=== PATIENT | female | born 1940 | race Caucasian/White ===

== ENCOUNTER 2018-09-02 13:52 | Emergency (ER) | payer MEDICARE ==
[~2018-09-02] VITALS: Ht 170.2 cm; Wt 78.0 kg
[~2018-09-02 13:52] MED LIST: ALPR0.5T6 PO; ASPI-630 PO; BACI1CAP PO; CALC-32 PO; DICY10CA53 PO; DILT120C71 PO; DOCU-109 PO; GABA800T2 PO; HEPA500022 SQ; HYDR-2680 PO; L. A1CAP10 PO; L. A1CAP7 PO; LEVO100T5 PO; LIDO700A39 TD; LINE600T PO; LOSA50TA7 PO; MULT-658 PO; MV-M1TAB7 PO; NITR100C PO; OMEP20CA9 PO; OXYC-327 PO; OXYC1TAB8 PO; PIPE2.255 MC
[2018-09-02 14:44] VITALS: BP 146/86
[2018-09-02] MEDS ORDERED: HYDROcodone/APAP 5/325MG 1 TAB TABLET PO ONE (15:00)
--- NOTE | 2018-09-02 15:03 | PHYS DOC ---
Past Medical History Past Medical History: Anxiety, Diabetes-Type II, Fibromyalgia, GERD, Hypertension, Hypothyroid, P.U.D., Other Additional Past Medical Histor: lupus,gastric ulcers,spinal stenosis,NEUROPTHY, OA Past Surgical History: Other Additional Past Surgical Histo: spinal x5 Alcohol Use: None Drug Use: Marijuana Adult General Chief Complaint Chief Complaint: MECHANICAL FALL HPI HPI 77-year-old female presents to ER via POV with her son for complaints of mechanical fall last night at 1 AM. Patient reports she has ongoing issues where her right leg "gives out on me". Patient reports she was using her walker and was going to the bathroom when her right leg did so and caused her to fall into the wall and then onto the floor. Patient reports she struck the right side of her head denies any LOC, dizziness, or vision changes. Patient's son at bedside denies patient with any confusion. Patient reports she does have right- sided head pain. Patient denies any nausea or vomiting. Patient reports she also struck her right elbow and hip. Patient reports she has been able to ambulate with use of walker today after fall but does have increased pain. Pt's son reports pt has been out of her Rx'd pain medication as someone had taken them from the [facility]. Review of Systems Review of Systems Constitutional: Denies lethargy Eyes: Denies change in visual acuity, redness, or eye pain [] HENT: Denies nasal congestion or sore throat [] Respiratory: Denies cough or shortness of breath [] Cardiovascular: Denies CP/palpitations GI: Denies abdominal pain, nausea, vomiting, bloody stools or diarrhea [] : Denies dysuria or hematuria. Denies incontinence of bowel/bladder Musculoskeletal: Reports rt lower back pain, rt elbow and rt hip pain. Integument: Denies open wounds/abrasions Neurologic: Denies headache, focal weakness or sensory changes. Denies dizziness All other systems were reviewed and found to be within normal limits, except as documented in this note. Current Medications Current Medications Current Medications Medications (Trade) Dose Ordered Sig/Karlene Start Time Stop Time Status Last Admin Dose Admin Acetaminophen/ Hydrocodone Bitart (Lortab 5/325) 1 tab 1X ONCE 09/02/18 15:00 09/02/18 15:01 DC 09/02/18 15:00 1 TAB Allergies Allergies Allergies Coded Allergies Type Severity Reaction Last Updated Verified etodolac Allergy Mild SWELLING 01/12/14 Yes latex Allergy Mild SKIN IRRITATION 01/12/14 Yes metformin Allergy Unknown 01/11/18 Yes sitagliptin Allergy Unknown 01/11/18 Yes Sulfa (Sulfonamide Antibiotics) Adverse Reaction Severe Rash 01/11/18 Yes codeine Adverse Reaction Mild Upset stomach 01/12/14 Yes Physical Exam Physical Exam Constitutional: Well developed, well nourished, no acute distress, non-toxic appearance. [] HENT: Normocephalic, tender to palp. rt temporal area with no swelling/ ecchymosis or visible injury, bilateral ears normal, oropharynx moist, no oral exudates, nose normal. [] Eyes: 3mm PERRLA, EOMI- no pain with eye movement, no nystagmusconjunctiva normal, no discharge. [] Neck: Normal range of motion, no tenderness- no midline cervical tenderness or palp deformity, supple, no stridor. [] Cardiovascular:Heart rate regular rhythm, no murmur [] Lungs & Thorax: Bilateral breath sounds clear to auscultation. Resp. equal/ nonlabored- no chest wall tenderness Abdomen: Bowel sounds normal, soft, no tenderness, no masses, no pulsatile masses. [] Skin: Warm, dry, no erythema, no rash. [] Back: Tender to palp. in rt lower back- no midline spinal tenderness or palp. deformity- no visible injury, no CVA tenderness. [] Extremities: Pelvis stable/nontender. Tender to palp. rt lateral hip- no deformity able to perform ROM- no shortening/outward rotation of LEs. Tender to palp. rt elbow- no deformity and able to perform ROM. Tender to palp. , no cyanosis, no clubbing, ROM intact, no edema. No visible injury on exam Neurologic: Alert and oriented X 3, normal motor function, normal sensory function, no focal deficits noted. [] Psychologic: Affect normal, judgement normal, mood normal. [] Current Patient Data Vital Signs Vital Signs Date Time Temp Pulse Resp B/P (MAP) Pulse Ox O2 Delivery O2 Flow Rate FiO2 09/02/18 15:00 16 98 09/02/18 14:44 98.3 91 146/86 (106) Room Air 98.3 EKG EKG [] Radiology/Procedures Radiology/Procedures PROCEDURE: HIP RIGHT 2 VIEW RIGHT HIP AP AND LATERAL Clinical Indication: RIGHT HIP PAIN FROM FALL YESTERDAY Comparison: AP pelvis and frog-leg right hip, June 01, 2018. Findings: There is no acute fracture or dislocation. There is mild degenerative arthropathy for patient age. Visualized pelvic bones appear intact. There is no soft tissue abnormality or radiopaque foreign body. IMPRESSION: No acute fracture or dislocation. Electronically signed by: Ovi Ortega MD (09/02/2018 4:32 PM) [id number] DICTATED and SIGNED BY: OVI ORTEGA MD DATE: 09/02/18 1630 PROCEDURE: CT LUMBAR SPINE WO CONTRAST PQRS Compliance statement: One or more of the following individualized dose reduction techniques were utilized for this examination: 1. Automated exposure control. 2. Adjustment of the mA and/or kV according to patient size. 3. Use of iterative reconstruction technique. INDICATION: Fall this morning with low back pain technique: CT of the lumbar spine COMPARISON: None FINDINGS: There are 5 lumbar type vertebral bodies. Grade 1 anterolisthesis is seen of L3 over L4. There is L4-L5 right-sided posterior fusion. Central loss depression is seen in the superior endplate of the L3 vertebral body most likely a collapsed Schmorl's node. No acute compression deformities. Diffuse osteopenia. No acute fractures. Segmental analysis: L1-L2: Central disc osteophyte complex indenting anterior thecal sac. Mild bilateral facet arthropathy. There is mild narrowing of spinal canal measuring 1.3 cm. Mild right and moderate left neuroforamina narrowing. L2-L3: Circumferential disc bulge with superimposed left paracentral disc osteophyte complex. Moderate bilateral facet arthropathy. Severe bilateral neuroforamina narrowing. L3-L4: Uncovering of disc secondary to anterolisthesis of L3 over L4. Severe bilateral facet arthropathy. Moderate severe right and left neuroforamina narrowing. L4-L5: Circumferential disc bulge with superimposed left paracentral disc osteophyte complex. Severe bilateral neuroforamina narrowing. Moderate right and left neuroforamina narrowing. L5-S1: No disc bulge or herniation. Moderate bilateral facet arthropathy. Severe right and moderate left neuroforamina narrowing. 1.9 x 2.2 cm partially exophytic lesion is seen in the left kidney demonstrating Hounsfield units atypical of simple cyst. IMPRESSION: 1. No acute compression deformities. Most likely collapse most nodes in the superior endplates of the L3 and L4 vertebral bodies. No acute fractures. 2. Multilevel degenerative disc disease with facet arthropathy causing varying amount of neuroforaminal narrowing as described above. 3. Left renal lesion demonstrating features not typical of a simple cyst. Further evaluation with ultrasound of the kidneys recommended. Electronically signed by: Ander Manning DO (09/02/2018 4:14 PM) [facility] DICTATED and SIGNED BY: ANDER MANNING DO DATE: 09/02/18 1608 PROCEDURE: CT HEAD AND CERVICAL SPINE WO CT head without intravenous contrast History: Fall this morning. Pain. Comparison: CT head May 19, 2018. Technique: Axial images are obtained of the head from the skull base through the vertex without IV contrast. Exposure: One or more of the following individualized dose reduction techniques were utilized for this examination: 1. Automated exposure control 2. Adjustment of the mA and/or kV according to patient size 3. Use of iterative reconstruction technique Findings: Mild expansion of the right extra-axial CSF space is similar to previous study. The ventricles are appropriate in size, shape, and location for the patient's age. No obvious intracranial mass, mass-effect, midline shift, hemorrhage or obvious acute infarction is identified. Basilar cisterns are patent. Nonspecific white matter low-attenuation seen, probably from chronic microvascular ischemic disease. Bone windows demonstrate no acute calvarial abnormality. Right maxillary sinus fluid is seen. Impression: 1. No acute intracranial process. Please note that CT can be relatively insensitive to acute ischemic infarction for up to 24 hours after symptom onset. 2. Nonspecific white matter changes, probably from chronic microvascular ischemic disease. 3. Right maxillary sinus fluid would be compatible with maxillary sinusitis. CT cervical spine Comparison: None. Technique: Noncontrast CT of the cervical spine was performed using helical technique. Axial, sagittal, coronal reconstructions were obtained. Exposure: One or more of the following individualized dose reduction techniques were utilized for this examination: 1. Automated exposure control 2. Adjustment of the mA and/or kV according to patient size 3. Use of iterative reconstruction technique Findings: There is no evidence of acute fracture or acute malalignment involving the cervical spine. No prevertebral soft tissue swelling is identified. Multilevel degeneration is seen with facet and uncovertebral hypertrophy as well as degenerative disease. Impression: No evidence of acute traumatic injury involving the cervical spine. Electronically signed by: Jairo Staples MD (09/02/2018 4:07 PM) [place] [id number] DICTATED and SIGNED BY: JAIRO STAPLES MD DATE: 09/02/18 1601 PROCEDURE: ELBOW RIGHT 2V Examination: ELBOW RIGHT 2V History: RIGHT ELBOW PAIN FROM FALL YESTERDAY Comparison/Correlation: None Findings: Frontal and lateral views of the right elbow were obtained. Joint spaces are normal. No fracture or bony destruction. Soft tissues are unremarkable. No joint effusion. No significant degenerative change especially for the patient's age. Impression: No acute process. Electronically signed by: Bulmaro Carnes MD (09/02/2018 4:31 PM) [facility] DICTATED and SIGNED BY: BULMARO CARNES MD DATE: 09/02/18 1630 Course & Med Decision Making Course & Med Decision Making Pertinent Imaging studies reviewed. (See chart for details) 1635: Dr. Bravo, pt's PCP is at bedside and is discussing pt's CT/imaging results with pt and her family- no acute findings reported for fxs/bleed reported degenerative findings. Pt remains neuro/vascular intact in all extremities w/full ROM. Pt is A&Ox3 and has had no change in behavior/MS. patient is being discharged back to [facility] facility. There was questions regarding patient's pain medications being "stolen" from [facility] facility. Patient's [id number] arrived with concerns that patient's son may be the one taking patient's pain medications. Dr. Bravo reports he had spoke with [facility] facility as well as patient's family regarding this matter. Will provide patient with prescription for her pain medication as she has not had any for the past [address] Bravo's request. Discharge instructions were discussed and education provided on signs and symptoms to return to ER for. Patient advised to continue using her walker with any ambulation. Will provide with fall precaution information on discharge paperwork. Dragon Disclaimer Dragon Disclaimer This electronic medical record was generated, in whole or in part, using a voice recognition dictation system. Departure Departure Impression: Primary Impression: Fall Additional Impressions: Hip pain, right Elbow pain, right Back pain Disposition: 01 HOME, SELF-CARE Condition: STABLE Referrals: KENA CARSON MD (PCP) Patient Instructions: Back Pain, Adult, Elbow Injury, Fall Prevention and Home Safety, Hip Pain Additional Instructions: Use your walker to prevent falls. Follow-up with your doctor as discussed for re-evaluation if symptoms persist or worsen. Scripts Oxycodone Hcl/Acetaminophen (OXYCODON-ACETAMINOPHEN 7.5-325) 1 Each Tablet 1 EACH PO BID PRN for PAIN, #14 TAB 0 Refills Prov: LIZBETH BOO APRN 09/02/18 Problem Qualifiers LIZBETH BOO APRN Sep 02, 2018 15:03
--- NOTE | 2018-09-02 16:10 | RAD ---
CT head without intravenous contrast History: Fall this morning. Pain. Comparison: CT head May 19, 2018. Technique: Axial images are obtained of the head from the skull base through the vertex without IV contrast. Exposure: One or more of the following individualized dose reduction techniques were utilized for this examination: 1. Automated exposure control 2. Adjustment of the mA and/or kV according to patient size 3. Use of iterative reconstruction technique Findings: Mild expansion of the right extra-axial CSF space is similar to previous study. The ventricles are appropriate in size, shape, and location for the patient's age. No obvious intracranial mass, mass-effect, midline shift, hemorrhage or obvious acute infarction is identified. Basilar cisterns are patent. Nonspecific white matter low-attenuation seen, probably from chronic microvascular ischemic disease. Bone windows demonstrate no acute calvarial abnormality. Right maxillary sinus fluid is seen. Impression: 1. No acute intracranial process. Please note that CT can be relatively insensitive to acute ischemic infarction for up to 24 hours after symptom onset. 2. Nonspecific white matter changes, probably from chronic microvascular ischemic disease. 3. Right maxillary sinus fluid would be compatible with maxillary sinusitis. CT cervical spine Comparison: None. Technique: Noncontrast CT of the cervical spine was performed using helical technique. Axial, sagittal, coronal reconstructions were obtained. Exposure: One or more of the following individualized dose reduction techniques were utilized for this examination: 1. Automated exposure control 2. Adjustment of the mA and/or kV according to patient size 3. Use of iterative reconstruction technique Findings: There is no evidence of acute fracture or acute malalignment involving the cervical spine. No prevertebral soft tissue swelling is identified. Multilevel degeneration is seen with facet and uncovertebral hypertrophy as well as degenerative disease. Impression: No evidence of acute traumatic injury involving the cervical spine. Electronically signed by: Jairo Tam MD (09/02/2018 4:07 PM) [place] [id number]
--- NOTE | 2018-09-02 16:17 | RAD ---
PQRS Compliance statement: One or more of the following individualized dose reduction techniques were utilized for this examination: 1. Automated exposure control. 2. Adjustment of the mA and/or kV according to patient size. 3. Use of iterative reconstruction technique. INDICATION: Fall this morning with low back pain technique: CT of the lumbar spine COMPARISON: None FINDINGS: There are 5 lumbar type vertebral bodies. Grade 1 anterolisthesis is seen of L3 over L4. There is L4-L5 right-sided posterior fusion. Central loss depression is seen in the superior endplate of the L3 vertebral body most likely a collapsed Schmorl's node. No acute compression deformities. Diffuse osteopenia. No acute fractures. Segmental analysis: L1-L2: Central disc osteophyte complex indenting anterior thecal sac. Mild bilateral facet arthropathy. There is mild narrowing of spinal canal measuring 1.3 cm. Mild right and moderate left neuroforamina narrowing. L2-L3: Circumferential disc bulge with superimposed left paracentral disc osteophyte complex. Moderate bilateral facet arthropathy. Severe bilateral neuroforamina narrowing. L3-L4: Uncovering of disc secondary to anterolisthesis of L3 over L4. Severe bilateral facet arthropathy. Moderate severe right and left neuroforamina narrowing. L4-L5: Circumferential disc bulge with superimposed left paracentral disc osteophyte complex. Severe bilateral neuroforamina narrowing. Moderate right and left neuroforamina narrowing. L5-S1: No disc bulge or herniation. Moderate bilateral facet arthropathy. Severe right and moderate left neuroforamina narrowing. 1.9 x 2.2 cm partially exophytic lesion is seen in the left kidney demonstrating Hounsfield units atypical of simple cyst. IMPRESSION: 1. No acute compression deformities. Most likely collapse most nodes in the superior endplates of the L3 and L4 vertebral bodies. No acute fractures. 2. Multilevel degenerative disc disease with facet arthropathy causing varying amount of neuroforaminal narrowing as described above. 3. Left renal lesion demonstrating features not typical of a simple cyst. Further evaluation with ultrasound of the kidneys recommended. Electronically signed by: Ander Manning DO (09/02/2018 4:14 PM) [facility]
--- NOTE | 2018-09-02 16:34 | RAD ---
Examination: ELBOW RIGHT 2V History: RIGHT ELBOW PAIN FROM FALL YESTERDAY Comparison/Correlation: None Findings: Frontal and lateral views of the right elbow were obtained. Joint spaces are normal. No fracture or bony destruction. Soft tissues are unremarkable. No joint effusion. No significant degenerative change especially for the patient's age. Impression: No acute process. Electronically signed by: Bulmaro Sellers MD (09/02/2018 4:31 PM) [facility]
--- NOTE | 2018-09-02 16:35 | RAD ---
RIGHT HIP AP AND LATERAL Clinical Indication: RIGHT HIP PAIN FROM FALL YESTERDAY Comparison: AP pelvis and frog-leg right hip, June 01, 2018. Findings: There is no acute fracture or dislocation. There is mild degenerative arthropathy for patient age. Visualized pelvic bones appear intact. There is no soft tissue abnormality or radiopaque foreign body. IMPRESSION: No acute fracture or dislocation. Electronically signed by: Ovi Ortega MD (09/02/2018 4:32 PM) [id number]
[2018-09-02] MEDS ORDERED: OXYC1TAB8 PO (16:58)
== END 2018-09-02 17:05 | disposition home or self-care (01) ==
LOC: ER 13:52
DX: M25.521 Pain in right elbow (principal); M25.551 Pain in right hip; M54.5 Low back pain; G89.11 Acute pain due to trauma; J32.0 Chronic maxillary sinusitis; K21.9 Gastro-esophageal reflux disease without esophagitis; E03.9 Hypothyroidism, unspecified; E11.40 Type 2 diabetes mellitus with diabetic neuropathy, unspecified; I10 Essential (primary) hypertension; Z91.040 Latex allergy status; Z88.8 Allergy status to other drugs, medicaments and biological substances; Z88.2 Allergy status to sulfonamides; Z88.5 Allergy status to narcotic agent; W18.09XA Striking against other object with subsequent fall, initial encounter; Y93.01 Activity, walking, marching and hiking; Y92.091 Bathroom in other non-institutional residence as the place of occurrence of the external cause; Y99.8 Other external cause status
CPT/HCPCS: 70450; 72125; 72131; 73070; 73502; 99284-25

== ENCOUNTER 2019-09-21 13:48 | Emergency (ER) | payer MEDICARE ==
[~2019-09-21] VITALS: Ht 170.2 cm; Wt 78.0 kg
[~2019-09-21 13:48] MED LIST changes: -GABA800T2 PO; +GABA800T5 PO; +LIDO700A21 TD; -LIDO700A39 TD; -LINE600T PO; +LINE600T12 PO; +LOSA-73 PO; -LOSA50TA7 PO; +OMEP20CA10 PO; -OMEP20CA9 PO; -OXYC-327 PO; +OXYC1TAB19 PO
--- NOTE | 2019-09-21 16:06 | PHYS DOC ---
Past Medical History Past Medical History: Anxiety, Diabetes-Type II, Fibromyalgia, GERD, Hype rtension, Hypothyroid, P.U.D., Other Additional Past Medical Histor: lupus,gastric ulcers,spinal stenosis, NEUROPTHY,OA (SIMI BALLARD APRN) Past Surgical History: Other Additional Past Surgical Histo: spinal x5 (SIMI BALLARD APRN) Alcohol Use: None Drug Use: Marijuana (SIMI BALLARD APRN) Adult General Chief Complaint Chief Complaint: MECHANICAL FALL HPI HPI Patient is a 78 year old female who presents with with a fall that happened around noon today. The patient states that she was at her prison community and went to open the door to her walking cane slipped and she fell on the concrete. The patient is having pain to her right leg hip knee, hit her head, right shoulder and right upper arm pain. The patient did not lose consciousness, is not on blood thinners. The patient rates her pain a 7 out of 10 in severity and sharp. (SIMI BALLARD APRN) Review of Systems Review of Systems Constitutional: Denies fever or chills [] Eyes: Denies change in visual acuity, redness, or eye pain [] HENT: Denies nasal congestion or sore throat [] Respiratory: Denies cough or shortness of breath [] Cardiovascular: No additional information not addressed in HPI [] GI: Denies abdominal pain, nausea, vomiting, bloody stools or diarrhea [] : Denies dysuria or hematuria [] Musculoskeletal: Reports leg, shoulder, and head pain. See HPI. Integument: Denies rash or skin lesions [] Neurologic: Denies headache, focal weakness or sensory changes [] Endocrine: Denies polyuria or polydipsia [] Complete systems were reviewed and found to be within normal limits, except as documented in this note. (SIMI BALLARD APRN) Current Medications Current Medications Current Medications Medications (Trade) Dose Ordered Sig/Karlene Start Time Stop Time Status Last Admin Dose Admin Lorazepam (Ativan Inj) 2 mg 1X STAT 09/21/19 17:14 09/21/19 17:15 DC 09/21/19 17:46 2 MG Morphine Sulfate (Morphine Sulfate) 8 mg 1X STAT 09/21/19 16:00 09/21/19 16:02 DC 09/21/19 16:30 8 MG (KADEN ARCOS MD) Allergies Allergies Allergies Coded Allergies Type Severity Reaction Last Updated Verified Penicillins Allergy Severe MOUTH SWELLS 09/21/19 Yes etodolac Allergy Severe SWELLING 09/21/19 Yes latex Allergy Intermediate SKIN IRRITATION 09/21/19 Yes metformin Allergy Intermediate 09/21/19 Yes sitagliptin Allergy Intermediate 09/21/19 Yes Sulfa (Sulfonamide Antibiotics) Adverse Reaction Intermediate Rash 09/21/19 Yes fluoxetine Adverse Reaction Intermediate CONFUSION 09/21/19 Yes codeine Adverse Reaction Mild Upset stomach 01/12/14 Yes (KADEN ARCOS MD) Physical Exam Physical Exam Constitutional: Well developed, well nourished, no acute distress, non-toxic appearance. [] HENT: Normocephalic, atraumatic, bilateral external ears normal, oropharynx moist, no oral exudates, nose normal. [] Eyes: PERRLA, EOMI, conjunctiva normal, no discharge. [] Neck: Normal range of motion, no tenderness, supple, no stridor. [] Cardiovascular:Heart rate regular rhythm, no murmur [] Lungs & Thorax: Bilateral breath sounds clear to auscultation [] Abdomen: Bowel sounds normal, soft, no tenderness, no masses, no pulsatile masses. [] Skin: Warm, dry, no erythema, no rash. [] Back: No tenderness, no CVA tenderness. [] Extremities: Tenderness to R hip, and upper leg. Tenderness to R shoulder and R upper arm. Neurologic: Alert and oriented X 3, normal motor function, normal sensory function, no focal deficits noted. [] Psychologic: Affect normal, judgement normal, mood normal. [] (SIMI BALLARD APRN) Current Patient Data Vital Signs Vital Signs Date Time Temp Pulse Resp B/P (MAP) Pulse Ox O2 Delivery O2 Flow Rate FiO2 09/21/19 17:22 87 98 09/21/19 15:36 97.8 20 174/102 (126) Room Air 97.8 (KADEN ARCOS MD) EKG EKG [] (SIMI BALLARD APRN) Radiology/Procedures Radiology/Procedures [facility] [address] [place], [place] [id number] IMAGING REPORT Signed PATIENT: GELACIO IVORY ACCOUNT: [id number] : 1940 LOCATION: ER AGE: 78 SEX: F EXAM STATUS: REG ER ORD. PHYSICIAN: SIMI BALLARD APRN REASON: fall. right sided pain PROCEDURE: HIP RIGHT 2V WITH PELVIS HIP RIGHT 2V WITH PELVIS DATE: 09/21/2019 12:00 AM INDICATION: Pain after falling COMPARISON: None. FINDINGS: Bones: There is no evidence of acute fracture or dislocation. Joints: The joint spaces are normal. Miscellaneous: None. IMPRESSION: No evidence of acute fracture. Electronically signed by: Yvan Delgadillo MD (09/21/2019 4:45 PM) [facility] DICTATED and SIGNED BY: YVAN DELGADILLO MD DATE: 09/21/[address] [place] [id number] IMAGING REPORT Signed PATIENT: GELACIO IVORY ACCOUNT: [id number] : 1940 LOCATION: ER AGE: 78 SEX: F EXAM STATUS: REG ER ORD. PHYSICIAN: SIMI BALLARD APRN REASON: fall. right sided pain PROCEDURE: RIGHT FEMUR XRAY RIGHT FEMUR XRAY DATE: 09/21/2019 12:00 AM INDICATION: Pain after falling COMPARISON: None. FINDINGS: Bones: There is no evidence of acute fracture. No joint dislocation is noted. Miscellaneous: None. IMPRESSION: No evidence of acute fracture. Electronically signed by: Yvan Delgadillo MD (09/21/2019 4:46 PM) [facility] DICTATED and SIGNED BY: YVAN DELGADILLO MD DATE: 09/21/[address] [place] [id number] IMAGING REPORT Signed PATIENT: GELACIO IVORY ACCOUNT: [id number] : 1940 LOCATION: ER AGE: 78 SEX: F EXAM STATUS: REG ER ORD. PHYSICIAN: SIMI BALLARD APRN REASON: fall. right sided pain PROCEDURE: KNEE RIGHT 3V KNEE RIGHT 3V DATE: 09/21/2019 3:58 PM INDICATION: Pain after falling COMPARISON: None. FINDINGS: Bones: There is no evidence of acute fracture or dislocation. Joints: Mild tricompartmental joint space narrowing. Chondrocalcinosis of the menisci. There is no joint effusion. Miscellaneous: None. IMPRESSION: No evidence of acute fracture. Mild tricompartmental degenerative changes. Chondrocalcinosis of the menisci, nonspecific but can be seen with CPPD arthropathy. Electronically signed by: Yvan Delgadillo MD (09/21/2019 4:47 PM) [facility] DICTATED and SIGNED BY: VYAN DELGADILLO MD DATE: 09/21/191646 [address] [address] IMAGING REPORT Signed PATIENT: GELACIO IVORY ACCOUNT: [id number] : 1940 LOCATION: ER AGE: 78 SEX: F EXAM STATUS: REG ER ORD. PHYSICIAN: SIMI BALLARD APRN REASON: fall. right sided pain PROCEDURE: HUMERUS RIGHT HUMERUS RIGHT, SHOULDER 2+V RIGHT DATE: 09/21/2019 3:58 PM INDICATION: Pain after falling COMPARISON: None. FINDINGS: Bones: There is no evidence of acute fracture or dislocation. Joints: Glenohumeral joint is congruent. Moderate to severe degenerative changes of the acromioclavicular joint. The acromiohumeral distance is not narrowed. Elbow joint is congruent. Miscellaneous: No abnormal soft tissue calcifications in the shoulder. IMPRESSION: No evidence of acute fracture. Electronically signed by: Yvan Delgadillo MD (09/21/2019 4:44 PM) [facility] DICTATED and SIGNED BY: YVAN DELGADILLO MD DATE: 09/21/19 728 [][address] [id number] IMAGING REPORT Signed PATIENT: GELACIO IVORY ACCOUNT: [id number] : 1940 LOCATION: ER AGE: 78 SEX: F EXAM STATUS: REG ER ORD. PHYSICIAN: SIMI BALLARD APRN REASON: FELL TODAY. HEAD AND NECK INJURY PROCEDURE: CT HEAD AND CERVICAL SPINE WO CT HEAD AND CERVICAL SPINE WO Date: 09/21/2019 5:55 PM Clinical Indication: Head and neck injury, fall, pain Comparison: 09/02/2018. Technique: 5 mm axial tomographic images were obtained of the head without contrast. These were viewed on brain and bone windows. Noncontrast CT of the cervical spine was performed. Sagittal and coronal reformats were performed and evaluated. One or more of the following dose reduction techniques were utilized: Automated exposure control (AEC), Adjustment of mA and/or kV according to patient size, Use of iterative reconstruction technique such as ASiR, CT scan done according to ALARA and image gently/image wisely HEAD FINDINGS: Mild generalized cerebral and cerebellar volume loss. Mild nonspecific periventricular hypoattenuation, most commonly seen with chronic small vessel ischemic disease. No intra- or extra-axial mass or fluid collection. No acute hemorrhage. The ventricles are normal in size, shape, and morphology. The ackerman-white matter junction is normal. The basilar cisterns are patent. The visualized paranasal sinuses are normal. The visualized portions of the orbits and globes are normal. The mastoid air cells are clear. No aggressive osseous lesion or fracture. Right frontoparietal scalp swelling. CERVICAL SPINE FINDINGS: 3 mm anterolisthesis at C4-5. No acute fracture. No aggressive lytic or blastic osseous lesions. Moderate multilevel degenerative disc space height loss. Multilevel mild spinal canal stenosis secondary to disc protrusions and marginal osteophytes. Multilevel mild and moderate neuroforaminal narrowing secondary to uncovertebral arthrosis. Multilevel mild and moderate facet arthrosis. The thyroid gland is atrophic. No cervical lymphadenopathy. Bilateral carotid atherosclerosis. The visualized aerodigestive tract is normal. The visualized portions of the lungs are clear. IMPRESSION: 1. No acute intracranial process. Right frontoparietal scalp swelling. 2. No acute cervical spine fracture. Electronically signed by: Yvan Delgadillo MD (09/21/2019 6:15 PM) [facility] DICTATED and SIGNED BY: YVAN DELGADILLO MD DATE: 09/21/191814 (SIMI BALLARD APRN) Course & Med Decision Making Course & Med Decision Making Pertinent Labs and Imaging studies reviewed. (See chart for details) Will get imaging and give supportive care. Imaging is negative. Will d/c home. (SIMI BALLARD APRN) Course & Med Decision Making I was not involved in the care of this patient after 1800 on 09/21/2019. (KADEN ARCOS MD) Dragon Disclaimer Dragon Disclaimer This electronic medical record was generated, in whole or in part, using a voice recognition dictation system. (SIMI BALLARD APRN) Departure Departure Impression: Primary Impression: Fall Disposition: HOME, SELF-CARE Condition: STABLE Referrals: KENA CARSON MD (PCP) Patient Instructions: Fall Prevention and Home Safety Additional Instructions: Thank you for visiting [facility]. We appreciate you trusting us with your care. If any additional problems come up don't hesitate to return to visit us. Please follow up with your primary care provider so they can plan additional care if needed and know about the problem that you had. If symptoms worsen come back to the Emergency Department. Any concerning symptoms that start such as chest pain, shortness of air, weakness or numbness on one side of the body, running high fevers or any other concerning symptoms return to the ER. SIMI BALLARD APRN Sep 21, 2019 16:06 KADEN ARCOS MD Sep 23, 2019 07:48
[2019-09-21] MEDS: MORPHINE SULFATE 4 MG/ML VIAL. IM STA (16:30)
--- NOTE | 2019-09-21 16:47 | RAD ---
HUMERUS RIGHT, SHOULDER 2+V RIGHT DATE: 09/21/2019 3:58 PM INDICATION: Pain after falling COMPARISON: None. FINDINGS: Bones: There is no evidence of acute fracture or dislocation. Joints: Glenohumeral joint is congruent. Moderate to severe degenerative changes of the acromioclavicular joint. The acromiohumeral distance is not narrowed. Elbow joint is congruent. Miscellaneous: No abnormal soft tissue calcifications in the shoulder. IMPRESSION: No evidence of acute fracture. Electronically signed by: Renato Delgadillo MD (09/21/2019 4:44 PM) [facility]
--- NOTE | 2019-09-21 16:48 | RAD ---
HIP RIGHT 2V WITH PELVIS DATE: 09/21/2019 12:00 AM INDICATION: Pain after falling COMPARISON: None. FINDINGS: Bones: There is no evidence of acute fracture or dislocation. Joints: The joint spaces are normal. Miscellaneous: None. IMPRESSION: No evidence of acute fracture. Electronically signed by: Renato Delgadillo MD (09/21/2019 4:45 PM) [facility]
--- NOTE | 2019-09-21 16:49 | RAD ---
RIGHT FEMUR XRAY DATE: 09/21/2019 12:00 AM INDICATION: Pain after falling COMPARISON: None. FINDINGS: Bones: There is no evidence of acute fracture. No joint dislocation is noted. Miscellaneous: None. IMPRESSION: No evidence of acute fracture. Electronically signed by: Renato Delgadillo MD (09/21/2019 4:46 PM) [facility]
--- NOTE | 2019-09-21 16:50 | RAD ---
KNEE RIGHT 3V DATE: 09/21/2019 3:58 PM INDICATION: Pain after falling COMPARISON: None. FINDINGS: Bones: There is no evidence of acute fracture or dislocation. Joints: Mild tricompartmental joint space narrowing. Chondrocalcinosis of the menisci. There is no joint effusion. Miscellaneous: None. IMPRESSION: No evidence of acute fracture. Mild tricompartmental degenerative changes. Chondrocalcinosis of the menisci, nonspecific but can be seen with CPPD arthropathy. Electronically signed by: Renato Delgadillo MD (09/21/2019 4:47 PM) [facility]
[2019-09-21 17:22] VITALS: BP 209/96
--- NOTE | 2019-09-21 18:18 | RAD ---
CT HEAD AND CERVICAL SPINE WO Date: 09/21/2019 5:55 PM Clinical Indication: Head and neck injury, fall, pain Comparison: 09/02/2018. Technique: 5 mm axial tomographic images were obtained of the head without contrast. These were viewed on brain and bone windows. Noncontrast CT of the cervical spine was performed. Sagittal and coronal reformats were performed and evaluated. One or more of the following dose reduction techniques were utilized: Automated exposure control (AEC), Adjustment of mA and/or kV according to patient size, Use of iterative reconstruction technique such as ASiR, CT scan done according to ALARA and image gently/image wisely HEAD FINDINGS: Mild generalized cerebral and cerebellar volume loss. Mild nonspecific periventricular hypoattenuation, most commonly seen with chronic small vessel ischemic disease. No intra- or extra-axial mass or fluid collection. No acute hemorrhage. The ventricles are normal in size, shape, and morphology. The ackerman-white matter junction is normal. The basilar cisterns are patent. The visualized paranasal sinuses are normal. The visualized portions of the orbits and globes are normal. The mastoid air cells are clear. No aggressive osseous lesion or fracture. Right frontoparietal scalp swelling. CERVICAL SPINE FINDINGS: 3 mm anterolisthesis at C4-5. No acute fracture. No aggressive lytic or blastic osseous lesions. Moderate multilevel degenerative disc space height loss. Multilevel mild spinal canal stenosis secondary to disc protrusions and marginal osteophytes. Multilevel mild and moderate neuroforaminal narrowing secondary to uncovertebral arthrosis. Multilevel mild and moderate facet arthrosis. The thyroid gland is atrophic. No cervical lymphadenopathy. Bilateral carotid atherosclerosis. The visualized aerodigestive tract is normal. The visualized portions of the lungs are clear. IMPRESSION: 1. No acute intracranial process. Right frontoparietal scalp swelling. 2. No acute cervical spine fracture. Electronically signed by: Renato Delgadillo MD (09/21/2019 6:15 PM) [facility]
== END 2019-09-21 18:55 | disposition home or self-care (01) ==
LOC: ER 13:48
DX: M25.551 Pain in right hip (principal); M25.511 Pain in right shoulder; M79.621 Pain in right upper arm; M79.604 Pain in right leg; M25.561 Pain in right knee; G89.11 Acute pain due to trauma; K21.9 Gastro-esophageal reflux disease without esophagitis; I10 Essential (primary) hypertension; E03.9 Hypothyroidism, unspecified; E11.40 Type 2 diabetes mellitus with diabetic neuropathy, unspecified; M19.90 Unspecified osteoarthritis, unspecified site; W01.198A Fall on same level from slipping, tripping and stumbling with subsequent striking against other object, initial encounter; Y93.01 Activity, walking, marching and hiking; Y92.89 Other specified places as the place of occurrence of the external cause; Y99.8 Other external cause status
CPT/HCPCS: 70450; 72125; 73030; 73060; 73502; 73552; 73562; 96372; 96374; 99284; J2060; J2270